=== PATIENT | female | born 1985 | race American Indian/Alaskan Native ===

== ENCOUNTER 2021-08-09 06:58 | Emergency (ER) | payer OTHER ==
[~2021-08-09] VITALS: Ht 160 cm; Wt 122.5 kg
[~2021-08-09 06:58] MED LIST: KEFLEX500 MG PO; MIRENA1 EACH IY; PEPCID20 MG PO; SIMETHICONE80 MG PO; ULTRAM50 MG PO; VITAFOL-OB+DHA1 EACH PO
[2021-08-09] MEDS ORDERED: ONDANSETRON ODT8 MG PO (10:07)
== END 2021-08-09 12:05 | disposition home or self-care (01) ==
LOC: ED 06:58
DX: K29.20 Alcoholic gastritis without bleeding (principal); E87.6 Hypokalemia; Z20.822 Contact with and (suspected) exposure to COVID-19; E11.9 Type 2 diabetes mellitus without complications; Z87.891 Personal history of nicotine dependence
CPT/HCPCS: 36415; 71045; 80053; 81001; 83690; 84703; 85025; 87502; 87880; 96361; 96365; 96366; 96375; 99284-25; A9270; C9113; C9803; J1790; J2405; J2550; J3480; J7030; U0003

== ENCOUNTER 2021-10-18 17:38 | Emergency (ER) | payer OTHER ==
[~2021-10-18] VITALS: Ht 160 cm; Wt 104.6 kg
[~2021-10-18 17:38] MED LIST changes: +ONDANSETRON ODT8 MG PO
[2021-10-18] MEDS ORDERED: OMEPRAZOLE20 MG PO (19:30)
[2021-10-18] MEDS ORDERED: ONDANSETRON ODT8 MG PO (19:30)
== END 2021-10-18 21:07 | disposition home or self-care (01) ==
LOC: ED 17:38
DX: K29.20 Alcoholic gastritis without bleeding (principal); K75.9 Inflammatory liver disease, unspecified; E83.42 Hypomagnesemia; E11.9 Type 2 diabetes mellitus without complications; Z20.822 Contact with and (suspected) exposure to COVID-19; Z87.891 Personal history of nicotine dependence
CPT/HCPCS: 36415; 76705; 80053; 81001; 83690; 83735; 84703; 85025; 87502; 96361; 96374; 96375; 99284-25; A9270; C9113; C9803; J1790; J2405; J3475; J7030; U0003

== ENCOUNTER 2021-11-27 14:21 | Emergency (ER) | payer OTHER ==
[~2021-11-27] VITALS: Ht 160 cm; Wt 100.4 kg
[~2021-11-27 14:21] MED LIST changes: +OMEPRAZOLE20 MG PO
[2021-11-27] MEDS ORDERED: PRILOSEC OTC20 MG PO (16:03)
[2021-11-27] MEDS ORDERED: ONDANSETRON ODT4 MG PO (16:03)
[2021-11-27] MEDS ORDERED: K-TAB ER20 MEQ PO (16:03)
== END 2021-11-27 21:51 | disposition home or self-care (01) ==
LOC: ED 14:21
DX: K70.9 Alcoholic liver disease, unspecified (principal); K29.00 Acute gastritis without bleeding; E87.6 Hypokalemia; E11.9 Type 2 diabetes mellitus without complications; Z87.891 Personal history of nicotine dependence; Z79.899 Other long term (current) drug therapy
CPT/HCPCS: 36415; 80048; 80053; 81001; 83690; 83735; 85025; 96365; 96366; 96375; 96376; 99284-25; A9270; J2405; J2550; J3480; J7060

== ENCOUNTER 2022-07-16 18:55 | Emergency (ER) | payer OTHER ==
[~2022-07-16] VITALS: Ht 160 cm; Wt 100.2 kg
[~2022-07-16 18:55] MED LIST changes: +K-TAB ER20 MEQ PO; +ONDANSETRON ODT4 MG PO; +PRILOSEC OTC20 MG PO
[2022-07-17] MEDS ORDERED: CEPHALEXIN500 MG PO (00:57)
[2022-07-17 01:19] VITALS: BP 115/78
== END 2022-07-17 01:23 | disposition home or self-care (01) ==
LOC: ED 18:55
DX: E86.0 Dehydration (principal); F10.129 Alcohol abuse with intoxication, unspecified; N39.0 Urinary tract infection, site not specified; R74.01 Elevation of levels of liver transaminase levels; E11.9 Type 2 diabetes mellitus without complications; Z87.891 Personal history of nicotine dependence; Z79.899 Other long term (current) drug therapy; Z20.822 Contact with and (suspected) exposure to COVID-19
CPT/HCPCS: 36415; 76705; 80053; 81001; 82553; 83690; 83735; 84703; 85025; 87502; 96365; 96366; 96367; 96375; 96376; 99284-25; C9803; G0480; J0696; J2405; J3411; J3475; J7030; J7121; U0003

== ENCOUNTER 2024-03-03 09:44 | Emergency (ER) | payer OTHER ==
[~2024-03-03] VITALS: Ht 160 cm; Wt 77.3 kg
[~2024-03-03 09:44] MED LIST changes: +CEPHALEXIN500 MG PO
[2024-03-03] MEDS ORDERED: TRIAMCINOLONE A15 G3 TOP (10:05)
[2024-03-03 11:07] LABS: BILIRUBIN, URINE NEGATIVE (negative); BLOOD/HGB, URINE LARGE (Negative); KETONE, URINE NEGATIVE (Negative); LEUK ESTERASE, URINE TRACE (negative); NITRITE, URINE NEGATIVE (negative)
[2024-03-03 11:12] LABS: EPITHELIAL CELLS, URINE SQUAMOUS 4+ /lpf (0-1+)
[2024-03-03 11:13] LABS: BACTERIA, URINE 1+ /hpf (negative); CASTS, URINE NONE SEEN \\lpf; COLLECTION TYPE, URINE CLEAN CATCH; CRYSTALS, URINE NONE SEEN (0-1+)
[2024-03-03 11:14] LABS: REFLEX CULTURE, URINE No (No)
[2024-03-03] MEDS ORDERED: IBUPROFEN 600 MG TAB PO ONE (11:15)
[2024-03-03] MEDS ORDERED: HYDROCODONE/ACETA 5/325 TAB PO ONE (11:15)
[2024-03-03] MEDS ORDERED: HYDROCODON-ACE1 EA10 PO (12:56)
[2024-03-03 13:12] VITALS: BP 106/74
== END 2024-03-03 13:10 | disposition home or self-care (01) ==
LOC: ED 09:44
PROVIDERS: Emergency Medicine
DX: R10.2 Pelvic and perineal pain (principal); S30.0XXA Contusion of lower back and pelvis, initial encounter; R73.03 Prediabetes; Z87.891 Personal history of nicotine dependence; Z79.899 Other long term (current) drug therapy; W19.XXXA Unspecified fall, initial encounter
CPT/HCPCS: 72170; 76830; 76856; 81001; 84703; 99284-25; A9270

== ENCOUNTER 2024-11-25 18:42 | Emergency (ER) | payer OTHER ==
[~2024-11-25] VITALS: Ht 160 cm; Wt 86.8 kg
[~2024-11-25 18:42] MED LIST changes: +HYDROCODON-ACE1 EA10 PO; +TRIAMCINOLONE A15 G3 TOP
[2024-11-25] MEDS ORDERED: DOXYCYCLINE HY100 M3 PO (20:19)
[2024-11-25 20:21] LABS: BASOPHILS 0.8 % (0.1-1.2); EOSINOPHILS 2.2 % (0.7-5.8); LYMPHOCYTES 45.2 % (19.3-51.7); MCH 32.5 PG (25.6-32.2); MCHC 33.2 g/dL (32.2-35.5); MCV 97.8 fL (79.4-94.8); MONOCYTES 7.6 % (4.7-12.5); NEUTROPHILS 44.0 % (34.0-71.1); RBC 4.00 M/uL (3.93-5.22)
[2024-11-25 20:38] LABS: ALT (SGPT) 49.0 U/L (14-59); AST (SGOT) 213.0 U/L (15-37); GLOMERULAR FILTRATION RATE,EST 117.0 mL/min (>60); PROTEIN, TOTAL 6.4 g/dL (6.4-8.2); UREA NITROGEN 4.0 mg/dL (7-18)
[2024-11-25 20:45] LABS: BLOOD/HGB, URINE NEGATIVE (Negative); KETONE, URINE NEGATIVE (Negative); LEUK ESTERASE, URINE NEGATIVE (negative); NITRITE, URINE NEGATIVE (negative)
[2024-11-25] MEDS ORDERED: FAMOTIDINE 20 MG/ 2 ML VIAL IV ONE (21:15)
[2024-11-25 21:22] LABS: INR 1.11 (0.80-1.30); PROTIME 13.6 Sec (11.2-14.2)
[2024-11-25] MEDS ORDERED: IBUPROFEN 800 MG TAB PO ONE (23:15)
[2024-11-25] MEDS ORDERED: IBU800 MG PO (23:29)
[2024-11-25] MEDS ORDERED: THIAMINE HCL 100 MG TAB PO ONE (23:30)
[2024-11-25 23:42] VITALS: BP 112/75
== END 2024-11-25 23:44 | disposition home or self-care (01) ==
LOC: ED 18:42
PROVIDERS: Internal Medicine
DX: S83.91XA Sprain of unspecified site of right knee, initial encounter (principal); S30.11XA Contusion of abdominal wall, initial encounter; K70.9 Alcoholic liver disease, unspecified; F10.90 Alcohol use, unspecified, uncomplicated; D17.5 Benign lipomatous neoplasm of intra-abdominal organs; R73.03 Prediabetes; J45.909 Unspecified asthma, uncomplicated; Z87.891 Personal history of nicotine dependence; Z79.899 Other long term (current) drug therapy; W19.XXXA Unspecified fall, initial encounter
CPT/HCPCS: 36415; 73560; 74177; 80053; 81003; 83690; 84703; 85025; 85610; 85730; 96374; 99284-25; A9270; Q9967

== ENCOUNTER 2025-01-04 12:48 | Emergency (ER) | payer OTHER ==
[~2025-01-04] VITALS: Ht 160 cm; Wt 81.8 kg
[~2025-01-04 12:48] MED LIST changes: +DOXYCYCLINE HY100 M3 PO; +IBU800 MG PO
[2025-01-04] MEDS ORDERED: SODIUM CHLORIDE 0.9% 1,000 ML IV PRN ×2 (14:00→16:30)
[2025-01-04 14:06] LABS: BASOPHILS 0.6 % (0.1-1.2); EOSINOPHILS 0.6 % (0.7-5.8); LYMPHOCYTES 22.0 % (19.3-51.7); MCH 32.8 PG (25.6-32.2); MCHC 33.5 g/dL (32.2-35.5); MCV 97.8 fL (79.4-94.8); MONOCYTES 5.3 % (4.7-12.5); NEUTROPHILS 71.1 % (34.0-71.1); RBC 4.12 M/uL (3.93-5.22)
[2025-01-04] MEDS ORDERED: FOLIC ACID 1 MG/0.2 ML ML IV SCH (14:10)
[2025-01-04] MEDS ORDERED: LORazepam 2 MG/ML VIAL IV/IM PRN (14:15)
[2025-01-04 14:20] LABS: ALT (SGPT) 38.0 U/L (14-59); AST (SGOT) 191.0 U/L (15-37); GLOMERULAR FILTRATION RATE,EST 101.0 mL/min (>60); PROTEIN, TOTAL 6.3 g/dL (6.4-8.2); UREA NITROGEN 5.0 mg/dL (7-18)
[2025-01-04 14:25] LABS: INR 1.27 (0.80-1.30); PROTIME 15.4 Sec (11.2-14.2)
[2025-01-04] MEDS ORDERED: THIAMINE HCL 200 MG/2 ML VIAL IV ONE (16:15)
[2025-01-04 17:09] LABS: BLOOD/HGB, URINE LARGE (Negative); KETONE, URINE NEGATIVE (Negative); LEUK ESTERASE, URINE LARGE (negative); NITRITE, URINE NEGATIVE (negative)
[2025-01-04 17:16] LABS: BACTERIA, URINE RARE /hpf (negative); CASTS, URINE NONE SEEN \\lpf; CRYSTALS, URINE NONE SEEN (0-1+); EPITHELIAL CELLS, URINE SQUAMOUS 1+ /lpf (0-1+)
[2025-01-04 17:17] LABS: REFLEX CULTURE, URINE No (No)
[2025-01-04 17:56] LABS: BLOOD/HGB, URINE NEGATIVE (Negative); KETONE, URINE SMALL (Negative); LEUK ESTERASE, URINE NEGATIVE (negative); NITRITE, URINE NEGATIVE (negative)
[2025-01-04 18:04] LABS: BACTERIA, URINE RARE /hpf (negative); CASTS, URINE NONE SEEN \\lpf; CRYSTALS, URINE NONE SEEN (0-1+); EPITHELIAL CELLS, URINE SQUAMOUS 1+ /lpf (0-1+); REFLEX CULTURE, URINE No (No)
[2025-01-04] MEDS ORDERED: CHLORDIAZEPOXID25 MG PO (19:43)
[2025-01-04] MEDS ORDERED: PROTONIX40 MG PO (19:43)
[2025-01-04 20:07] VITALS: BP 108/67
[2025-01-05] MEDS ORDERED: MULTIVITAMINS THERAPEUTIC 1 EA TAB PO SCH (08:00)
[2025-01-06] MEDS ORDERED: THIAMINE HCL 100 MG TAB PO SCH (08:00)
== END 2025-01-04 20:07 | disposition home or self-care (01) ==
LOC: ED 12:48
PROVIDERS: Emergency Medicine
DX: K29.70 Gastritis, unspecified, without bleeding (principal); F10.90 Alcohol use, unspecified, uncomplicated; K70.30 Alcoholic cirrhosis of liver without ascites; J45.909 Unspecified asthma, uncomplicated; Z87.891 Personal history of nicotine dependence
CPT/HCPCS: 36415; 51701; 76705; 80053; 81001; 83690; 83735; 84703; 85025; 85610; 96361; 96374; 96375; 96376; 99284-25; G0480; J2060; J2405; J3411; J7030

== ENCOUNTER 2025-01-26 11:12 | Emergency (ER) | payer OTHER ==
[~2025-01-26] VITALS: Ht 160 cm; Wt 86.0 kg
[~2025-01-26 11:12] MED LIST changes: +CHLORDIAZEPOXID25 MG PO; +PROTONIX40 MG PO
--- OUTSIDE RECORDS SUMMARY | 2025-01-26 11:19 | XMS ---
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 \F\ <UNAVAIL> PHONE: [phone] Emily has no Care Guidelines for this patient. [place] VISIT COUNT (12 MO.) 4 [facility] TOTAL 4 NOTE: Visits indicate total known visits. ED/C VISIT TRACKING (12 MO.) 01/26/2025 11:13 [facility] [place] TYPE: Emergency COMPLAINT: - ABDOMINAL PAIN 01/04/2025 12:49 [facility] [place] TYPE: Emergency COMPLAINT: - FLU SYMPTOMS DIAGNOSES: - Alcohol use, unspecified, uncomplicated - Alcoholic cirrhosis of liver without ascites - Epigastric pain - Gastritis, unspecified, without bleeding - Personal history of nicotine dependence - Unspecified asthma, uncomplicated 11/25/2024 18:42 [facility] [place] TYPE: Emergency COMPLAINT: - SWELLING DIAGNOSES: - Alcohol use, unspecified, uncomplicated - Alcoholic liver disease, unspecified - Benign lipomatous neoplasm of intra-abdominal organs - Contusion of abdominal wall, initial encounter - Other local company intermodal truck driver (current) drug therapy - Personal history of nicotine dependence - Prediabetes - Sprain of unspecified site of right knee, initial encounter - Unspecified abdominal pain - Unspecified asthma, uncomplicated - Unspecified fall, initial encounter 03/03/2024 09:[address] [facility] [place] TYPE: Emergency COMPLAINT: - VAGINAL BLEEDING DIAGNOSES: - Abnormal uterine and vaginal bleeding, unspecified - Contusion of lower back and pelvis, initial encounter - Other fdc (current) drug therapy - Pelvic and perineal pain - Personal history of nicotine dependence - Prediabetes - Unspecified fall, initial encounter INPATIENT VISIT TRACKING (12 MO.) No inpatient visits to display in this time frame [id number]
[2025-01-26] MEDS ORDERED: FIBER GUMMIES1 EACH PO (11:37)
[2025-01-26] MEDS ORDERED: PRENATAL MULTI1 EAC5 PO (11:37)
[2025-01-26 11:55] LABS: BLOOD/HGB, URINE MODERATE (Negative); KETONE, URINE NEGATIVE (Negative); LEUK ESTERASE, URINE NEGATIVE (negative); NITRITE, URINE NEGATIVE (negative)
[2025-01-26 11:57] LABS: BASOPHILS 0.6 % (0.1-1.2); EOSINOPHILS 2.2 % (0.7-5.8); LYMPHOCYTES 16.9 % (19.3-51.7); MCH 32.3 PG (25.6-32.2); MCHC 32.8 g/dL (32.2-35.5); MCV 98.4 fL (79.4-94.8); MONOCYTES 4.3 % (4.7-12.5); NEUTROPHILS 75.8 % (34.0-71.1); RBC 3.78 M/uL (3.93-5.22)
[2025-01-26 12:08] LABS: ALT (SGPT) 24.0 U/L (14-59); AST (SGOT) 91.0 U/L (15-37); GLOMERULAR FILTRATION RATE,EST 117.0 mL/min (>60); PROTEIN, TOTAL 6.5 g/dL (6.4-8.2); UREA NITROGEN 3.0 mg/dL (7-18)
[2025-01-26 12:19] LABS: BACTERIA, URINE NONE SEEN /hpf (negative); CASTS, URINE NONE SEEN \\lpf; CRYSTALS, URINE NONE SEEN (0-1+); EPITHELIAL CELLS, URINE SQUAMOUS 2+ /lpf (0-1+); REFLEX CULTURE, URINE No (No)
[2025-01-26] MEDS ORDERED: HYDROmorphone HCL 1 MG/ML SYR IV ONE (13:30)
[2025-01-26] MEDS ORDERED: ONDANSETRON HCL4 MG PO (14:18)
[2025-01-26] MEDS ORDERED: HYDROCODON-ACE1 EAC8 PO (14:18)
[2025-01-26 14:41] VITALS: BP 108/60
[2025-01-26] MEDS ORDERED: HYDROCODONE/APAP 10/325 1 TAB PO ONE (14:45)
== END 2025-01-26 14:43 | disposition home or self-care (01) ==
LOC: ED 11:12
PROVIDERS: Emergency Medicine
DX: K85.90 Acute pancreatitis without necrosis or infection, unspecified (principal); J45.909 Unspecified asthma, uncomplicated; Z87.891 Personal history of nicotine dependence; Z79.899 Other long term (current) drug therapy
CPT/HCPCS: 36415; 80053; 81001; 83690; 83735; 84703; 85025; 96374; 99284-25; A9270; J1171

== ENCOUNTER 2025-02-04 05:18 | Emergency (ER) | payer OTHER ==
[~2025-02-04] VITALS: Ht 160 cm; Wt 84.3 kg
--- OUTSIDE RECORDS SUMMARY | ~2025-02-04 | XMS | Continuity of Care Document ---
Demographics + + + | Address | [address] | | | [place] [address] | + + + | Preferred Language | Unknown | + + + | Marital Status | | + + + | Gnosticism Affiliation | Unknown | + + + | Race | or | + + + | Ethnic Group | Not or | + + + Author + + + | Author | [facility] | + + + | Organization | [facility] | + + + | Address | [address] | | | [place] [address] | + + + | Phone | | + + + Care Team Providers + + + + | Care Fraud Examiner Name | Role | Phone | + + + + Unavailable | Unavailable | + + + + Unavailable | Unavailable | + + + + Allergies and Intolerances + + + + + + | date | description | facility | reaction | severity | + + + + + + | 2025-01-26 | UNK | [facility] - | (no reaction) | Mild | | 00:00 | [facility] | | | + + + + + + Encounters No information. Functional Status No information. Immunizations No information. Medications + + + + | date | description | facility | + + + + | 2025-01-04 00:00 | ONDANSETRON | [facility] | | | | [facility] | + + + + | (no date) | TRIAMCINOLONE ACETONIDE | [facility] | | | | [facility] | + + + + | (no date) | INULIN/CHROMIUM PICOLINATE | [facility] | | | | [facility] | + + + + | (no date) | DOXYCYCLINE HYCLATE | [facility] | | | | [facility] | + + + + | 2025-01-26 00:00 | ONDANSETRON HCL | [facility] | | | | [facility] | + + + + | 2024-11-25 00:00 | Ibuprofen | [facility] | | | | [facility] | + + + + | 2025-01-04 00:00 | PANTOPRAZOLE SODIUM | [facility] | | | | [facility] | + + + + | (no date) | LEVONORGESTREL | [facility] | | | | [facility] | + + + + | 2025-01-26 00:00 | HYDROCODONE | [facility] | | | BIT/ACETAMINOPHEN | [facility] | + + + + | 2025-01-04 00:00 | CHLORDIAZEPOXIDE HCL | [facility] | | | | [facility] | + + + + Problems + + + + | date | description | facility | + + + + | 2024-11-25 00:00 | Alcohol use disorder | [facility] | | | | [facility] | + + + + | 2024-11-25 00:00 | Alcoholic liver disease | [facility] | | | | [facility] | + + + + | 2024-11-25 00:00 | Sprain of knee | [facility] | | | | [facility] | + + + + | 2025-01-04 00:00 | Gastritis | [facility] | | | | [facility] | + + + + | 2025-01-04 00:00 | Cirrhosis with alcoholism | [facility] | | | | [facility] | + + + + | 2025-01-26 00:00 | Pancreatitis | [facility] | | | | [facility] | + + + + Procedures No information. Results/Labs +--------+--------+ +---------+--------+---------+ | test | date | facility | value | unit | notes | +--------+--------+ +---------+--------+---------+ + + | Result panel 1 | + + + + + +--------+ + + | Prothrombin | 2025-01-04 | | 15.4 | (missing) | (missing) | | time | 13:35:08 | [facility] | | | | + + + +--------+ + + + + | Result panel 2 | + + + + + +--------+ + + | INR PPP | 2025-01-04 | | 1.27 | (missing) | (missing) | | | 13:35:08 | [facility] | [facility] | | | | + + + +--------+ + + + + | Result panel 3 | + + + + + +------+ + + | Ethanol | 2025-01-04 | | <3 | (missing) | (missing) | | SerPl-sCnc | 13:35:08 | [facility] | | | | | | [facility] | | | | + + + +------+ + + + + | Result panel 4 | + + + + + +--------+ + + | MCHC RBC | 2025-01-26 | | 32.8 | (missing) | (missing) | | Auto-EntMCnc | 11:30:08 | [facility] | | | | [facility] | | | | + + + +--------+ + + + + | Result panel 5 | + + + + + +-------+ + + | Platelet # | 2025-01-26 | | 174 | (missing) | (missing) | | Bld Auto | 11:30:08 | [facility] | | | | [facility] | | | | + + + +-------+ + + + + | Result panel 6 | + + + + + +--------+ + + | Neutrophils | 2025-01-26 | | 75.8 | (missing) | (missing) | | NFr Bld | 11:30:08 | [facility] | | | | | Auto | | [facility] | | | | + + + +--------+ + + + + | Result panel 7 | + + + + + +--------+ + + | Lymphocytes | 2025-01-26 | | 16.9 | (missing) | (missing) | | NFr Bld | 11:30:08 | [facility] | | | | | Auto | | [facility] | | | | + + + +--------+ + + + + | Result panel 8 | + + + + + +-------+ + + | Monocytes | 2025-01-26 | | 4.3 | (missing) | (missing) | | NFr Bld Auto | 11:30:08 | [facility] | | | | [facility] | | | | + + + +-------+ + + + + | Result panel 9 | + + + + + +-------+ + + | Eosinophil | 2025-01-26 | | 2.2 | (missing) | (missing) | | NFr Bld Auto | 11:30:08 | [facility] | | | | [facility] | | | | + + + +-------+ + + + + | Result panel 10 | + + + + + +-------+ + + | Basophils | 2025-01-26 | | 0.6 | (missing) | (missing) | | NFr Bld Auto | 11:30:08 | [facility] | | | [facility] | | | | + + + +-------+ + + + + | Result panel 11 | + + + + + +------+---------+ + | Glucose | 2025-01-26 | | 97 | mg/dL | (missing) | | SerPl-mCnc | 11:30:08 | [facility] | | | | | | [facility] | | | | + + + +------+---------+ + + + | Result panel 12 | + + + + + +-----+---------+ + | BUN | 2025-01-26 | | 3 | mg/dL | (missing) | | [facility]-John[facility] | 11:30:08 | [facility] | | | | | | [facility] | | | | + + + +-----+---------+ + + + | Result panel 13 | + + + + + +--------+---------+ + | Creat | 2025-01-26 | | 0.57 | mg/dL | (missing) | | SerPl-mCnc | 11:30:08 | [facility] | | | [facility] | | | | + + + +--------+---------+ + + + | Result panel 14 | + + + + + +--------+ + + | WBC # Bld | 2025-01-26 | | 5.37 | (missing) | (missing) | | Auto | 11:30:08 | [facility] | | | [facility] | | | | + + + +--------+ + + + + | Result panel 15 | + + + + + +-------+ + + | eGFRcr | 2025-01-26 | | 117 | (missing) | (missing) | | SerPlBld | 11:30:08 | [facility] | | | | | CKD-EPI 2020 | [facility] | | | | + + + +-------+ + + + + | Result panel 16 | + + + + + +--------+ + + | BUN/Creat | 2025-01-26 | | 5.26 | (missing) | (missing) | | SerPl | 11:30:08 | [facility] | | | | | | [facility] | | | | + + + +--------+ + + + + | Result panel 17 | + + + + + +-------+ + + | Sodium | 2025-01-26 | | 135 | (missing) | (missing) | | SerPl-sCnc | 11:30:08 | [facility] | | | | | | [facility] | | | | + + + +-------+ + + + + | Result panel 18 | + + + + + +-------+ + + | Potassium | 2025-01-26 | | 3.3 | (missing) | (missing) | | SerPl-sCnc | 11:30:08 | [facility] | | | | | | [facility] | | | | + + + +-------+ + + + + | Result panel 19 | + + + + + +-------+ + + | Chloride | 2025-01-26 | | 102 | (missing) | (missing) | | SerPl-sCnc | 11:30:08 | [facility] | | | | | [facility] | | | | + + + +-------+ + + + + | Result panel 20 | + + + + + +------+ + + | CO2 | 2025-01-26 | | 26 | (missing) | (missing) | | SerPl-sCnc | 11:30:08 | [facility] | | | | | | [facility] | | | | + + + +------+ + + + + | Result panel 21 | + + + + + +--------+ + + | Anion Gap | 2025-01-26 | | 10.3 | (missing) | (missing) | | SerPl | 11:30:08 | [facility] | | | | | Calculated.4 | | [facility]nc | | [facility] | | | | + + + +--------+ + + + + | Result panel 22 | + + + + + +-------+---------+ + | Calcium | 2025-01-26 | | 8.1 | mg/dL | (missing) | | SerPl-mCnc | 11:30:08 | [facility] | | | | | | [facility] | | | | + + + +-------+---------+ + + + | Result panel 23 | + + + + + +-------+---------+ + | Magnesium | 2025-01-26 | | 1.6 | mg/dL | (missing) | | [facility] | 11:30:08 | [facility] | | | | | | [facility] | | | | + + + +-------+---------+ + + + | Result panel 24 | + + + + + +-------+ + + | Prot | 2025-01-26 | | 6.5 | (missing) | (missing) | | SerPl-mCnc | 11:30:08 | [facility] | | | | | [facility] | | | | + + + +-------+ + + + + | Result panel 25 | + + + + + +--------+ + + | RBC # Bld | 2025-01-26 | | 3.78 | (missing) | (missing) | | Auto | 11:30:08 | [facility] | | | | | [facility] | | | | + + + +--------+ + + + + | Result panel 26 | + + + + + +-------+ + + | Albumin | 2025-01-26 | | 2.6 | (missing) | (missing) | | SerPl-mCnc | 11:30:08 | [facility] | | | | | | | - | | | | | | | [facility] | | | | + + + +-------+ + + + + | Result panel 27 | + + + + + +-------+ + + | Globulin | 2025-01-26 | | 3.9 | (missing) | (missing) | | Ser-mCnc | 11:30:08 | [facility] | | | | | | [facility] | | | | + + + +-------+ + + + + | Result panel 28 | + + + + + +--------+ + + | | 2025-01-26 | | 0.67 | (missing) | (missing) | | Albumin/Glob | 11:30:08 | [facility] | | | | | SerPl | [facility] | | | | + + + +--------+ + + + + | Result panel 29 | + + + + + +-------+---------+ + | Bilirub | 2025-01-26 | | 1.9 | mg/dL | (missing) | | SerPl-mCnc | 11:30:08 | [facility] | | | | | [facility] | | | | + + + +-------+---------+ + + + | Result panel 30 | + + + + + +------+ + + | AST | 2025-01-26 | | 91 | (missing) | (missing) | | SerPl-cCn | 11:30:08 | [facility] | | | | | | [facility] | | | | + + + +------+ + + + + | Result panel 31 | + + + + + +------+ + + | ALT | 2025-01-26 | | 24 | (missing) | (missing) | | SerPl-cCnc | 11:30:08 | [facility] | | | | | [facility] | | | | + + + +------+ + + + + | Result panel 32 | + + + + + +-------+ + + | ALP | 2025-01-26 | | 178 | (missing) | (missing) | | [facility] | 11:30:08 | [facility] | | | | [facility] | | | | + + + +-------+ + + + + | Result panel 33 | + + + + + +------+ + + | Lipase | 2025-01-26 | | 90 | (missing) | (missing) | | SerPl-cCnc | 11:30:08 | [facility] | | | | | [facility] | | | | + + + +------+ + + + + | Result panel 34 | + + + + + + + + + | HCG SerPl | 2025-01-26 | | NEGATIVE | (missing) | (missing) | | Ql | 11:30:08 | [facility] | [facility] | | | | + + + + + + + + + | Result panel 35 | + + + + + +--------+ + + | Hgb | 2025-01-26 | | 12.2 | (missing) | (missing) | | Bld-mCnc | 11:30:08 | [facility] | | | | | [facility] | | | | + + + +--------+ + + + + | Result panel 36 | + + + + + +--------+ + + | Hct VFr.DF | 2025-01-26 | | 37.2 | (missing) | (missing) | | Bld Auto | 11:30:08 | [facility] | | | [facility] | | | | + + + +--------+ + + + + | Result panel 37 | + + + + + +--------+ + + | RBC Auto | 2025-01-26 | | 98.4 | (missing) | (missing) | | | 11:30:08 | [facility] | | | | + + + +--------+ + + + + | Result panel 38 | + + + + + +--------+ + + | MCH RBC Qn | 2025-01-26 | | 32.3 | (missing) | (missing) | | Auto | 11:30:08 | [facility] | | | | [facility] | | | | + + + +--------+ + + + + | Result panel 39 | + + + + + + + + + | Color Ur | 2025-01-26 | | YELLOW | (missing) | (missing) | | Auto | 11:50:08 | [facility] | | | [facility] | | | | + + + + + + + + + | Result panel 40 | + + + + + +---------+ + + | Character | 2025-01-26 | | CLEAR | (missing) | (missing) | | Ur | 11:50:08 | [facility] | | | | | [facility] | | | | + + + +---------+ + + + + | Result panel 41 | + + + + + + + + + | Glucose Ur | 2025-01-26 | | NEGATIVE | (missing) | (missing) | | Ql Strip | 11:50:08 | [facility] | | | | [facility] | | | | + + + + + + + + + | Result panel 42 | + + + + + + + + + | Bilirub Ur | 2025-01-26 | | NEGATIVE | (missing) | (missing) | | Ql Strip | 11:50:08 | [facility] | | | | | [facility] | | | | + + + + + + + + + | Result panel 43 | + + + + + + + + + | Ketones Ur | 2025-01-26 | | NEGATIVE | (missing) | (missing) | | Ql Strip | 11:50:08 | [facility] | | | | | [facility] | | | | + + + + + + + + + | Result panel 44 | + + + + + +---------+ + + | Sp Gr Ur | 2025-01-26 | | 1.010 | (missing) | (missing) | | Strip | 11:50:08 | [facility] | | | | | [facility] | | | | + + + +---------+ + + + + | Result panel 45 | + + + + + + + + + | Hgb Ur Ql | 2025-01-26 | | MODERATE | (missing) | (missing) | | Strip | 11:50:08 | [facility] | | | | | | [facility] | | | | + + + + + + + + + | Result panel 46 | + + + + + +-------+ + + | pH Ur Strip | 2025-01-26 | | 7.5 | (missing) | (missing) | | | 11:50:08 | [facility] | | | | | [facility] | | | | + + + +-------+ + + + + | Result panel 47 | + + + + + + + + + | Prot Ur | 2025-01-26 | | NEGATIVE | (missing) | (missing) | | Strip-mCnc | 11:50:08 | [facility] | | | | | [facility] | | | | + + + + + + + + + | Result panel 48 | + + + + + + + + + | | 2025-01-26 | | NORMAL | (missing) | (missing) | | Urobilinogen | 11:50:08 | [facility] | | | | | Ur | [facility]-m[facility]nc | | [facility] | | | | + + + + + + + + + | Result panel 49 | + + + + + + + + + | Nitrite Ur | 2025-01-26 | | NEGATIVE | (missing) | (missing) | | Ql Strip | 11:50:08 | [facility] | | | | | | [facility] | | | | + + + + + + + + + | Result panel 50 | + + + + + + + + + | Leukocyte | 2025-01-26 | | NEGATIVE | (missing) | (missing) | | esterase Ur | 11:50:08 | [facility] | | | | | Ql Strip | [facility] | | | | + + + + + + + + + | Result panel 51 | + + + + + +-------+ + + | RBC #/area | 2025-01-26 | | 0-1 | (missing) | (missing) | | UrnS HPF | 11:50:08 | [facility] | | | | | | [facility] | | | | + + + +-------+ + + + + | Result panel 52 | + + + + + +-------+ + + | WBC #/area | 2025-01-26 | | 0-1 | (missing) | (missing) | | UrnS HPF | 11:50:08 | [facility] | | | | | | [facility] | | | | + + + +-------+ + + + + | Result panel 53 | + + + + + + + + + | Epi Cells | 2025-01-26 | | SQUAMOUS 2+ | (missing) | (missing) | | #/area UrnS | 11:50:08 | [facility] | | | | | HPF | [facility] | | | | + + + + + + + + + | Result panel 54 | + + + + + + + + + | Crystals | 2025-01-26 | | NONE SEEN | (missing) | (missing) | | UrnS Micro | 11:50:08 | [facility] | | | | | | [facility] | | | | + + + + + + + + + | Result panel 55 | + + + + + + + + + | Bacteria | 2025-01-26 | | NONE SEEN | (missing) | (missing) | | #/area UrnS | 11:50:08 | [facility] | | | | | HPF | | - | | | | | | | [facility] | | | | + + + + + + + + + | Result panel 56 | + + + + + + + + + | Casts | 2025-01-26 | | NONE SEEN | (missing) | (missing) | | #/area UrnS | 11:50:08 | [facility] | | | | | LPF | [facility] | | | | + + + + + + + + + | Result panel 57 | + + + + + +------+ + + | Bacteria Ur | 2025-01-26 | | No | (missing) | (missing) | | Cult | 11:50:08 | [facility] | | | | | | [facility] | | | | + + + +------+ + + + + | Result panel 58 | + + + + + + + + + | Urn Spec | 2025-01-26 | | CLEAN CATCH | (missing) | (missing) | | Collect Meth | 11:50:08 | [facility] | | | | | Ur | [facility] | | | | + + + + + + + Social History +--------+ + + | date | description | facility | +--------+ + + Vital Signs + + + +---------+ | date | measurement | value | units | + + + +---------+ | 2025-01-04 00:00 | BMI | 31.9 | kg/m2 | + + + +---------+ | 2025-01-04 00:00 | BP_diastolic | 67 | mmHg | + + + +---------+ | 2025-01-04 00:00 | BP_systolic | 108 | mmHg | + + + +---------+ | 2025-01-04 00:00 | heart_rate | 73 | /min | + + + +---------+ | 2025-01-04 00:00 | height_metric | 160.02 | cm | + + + +---------+ | 2025-01-04 00:00 | height_standard | 63 | in | + + + +---------+ | 2025-01-04 00:00 | o2_saturation | 98 | % | + + + +---------+ | 2025-01-04 00:00 | respiration_rate | 17 | /min | + + + +---------+ | 2025-01-04 00:00 | | 98.6 | F | | | temperature_standar | | | | | d | | | + + + +---------+ | 2025-01-04 00:00 | weight_metric | 81.8 | kg | + + + +---------+ | 2025-01-04 00:00 | weight_standard | 180.337 | lb | + + + +---------+ | 2025-01-26 00:00 | BMI | 33.6 | kg/m2 | + + + +---------+ | 2025-01-26 00:00 | BP_diastolic | 60 | mmHg | + + + +---------+ | 2025-01-26 00:00 | BP_systolic | 108 | mmHg | + + + +---------+ | 2025-01-26 00:00 | heart_rate | 75 | /min | + + + +---------+ | 2025-01-26 00:00 | height_metric | 160.02 | cm | + + + +---------+ | 2025-01-26 00:00 | height_standard | 63 | in | + + + +---------+ | 2025-01-26 00:00 | o2_saturation | 98 | % | + + + +---------+ | 2025-01-26 00:00 | respiration_rate | 14 | /min | + + + +---------+ | 2025-01-26 00:00 | | 98.5 | F | | | temperature_standar | | | | | d | | | + + + +---------+ | 2025-01-26 00:00 | weight_metric | 86.001 | kg | + + + +---------+ | 2025-01-26 00:00 | weight_standard | 189.600 | lb | + + + +---------+"
[~2025-02-04 05:18] MED LIST changes: +FIBER GUMMIES1 EACH PO; +HYDROCODON-ACE1 EAC8 PO; +ONDANSETRON HCL4 MG PO; +PRENATAL MULTI1 EAC5 PO
--- OUTSIDE RECORDS SUMMARY | 2025-02-04 05:25 | XMS ---
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 \F\ <UNAVAIL> PHONE: [phone] Emily has no Care Guidelines for this patient. [place] VISIT COUNT (12 MO.) 5 [facility] TOTAL 5 NOTE: Visits indicate total known visits. ED/C VISIT TRACKING (12 MO.) 02/04/2025 05:19 [facility] [place] TYPE: Emergency COMPLAINT: - ABD PAIN 01/26/2025 11:13 [facility] [place] TYPE: Emergency COMPLAINT: - ABDOMINAL PAIN DIAGNOSES: - Acute pancreatitis without necrosis or infection, unspecified - Lower abdominal pain, unspecified - Other penitentiary (current) drug therapy - Personal history of nicotine dependence - Unspecified asthma, uncomplicated 01/04/2025 12:49 [facility] [place] TYPE: Emergency [...] of abdominal wall, initial encounter - Other termite helper (current) drug therapy - Personal history of nicotine dependence - Prediabetes - Sprain of unspecified site of right knee, initial encounter - Unspecified abdominal pain - Unspecified asthma, uncomplicated - Unspecified fall, initial encounter 03/03/2024 09:44 [facility] [place] TYPE: Emergency COMPLAINT: - VAGINAL BLEEDING DIAGNOSES: - Abnormal uterine and vaginal bleeding, unspecified - Contusion of lower back and pelvis, initial encounter - Other penitentiary (current) drug therapy - Pelvic and perineal pain - Personal history of nicotine dependence - Prediabetes - Unspecified fall, initial encounter INPATIENT VISIT TRACKING (12 MO.) No inpatient visits to display in this time frame [id number]
[2025-02-04] MEDS ORDERED: FAMOTIDINE 20 MG/ 2 ML VIAL IV ONE ×2 (06:00→06:30)
[2025-02-04] MEDS ORDERED: THIAMINE HCL 200 MG/2 ML VIAL IV ONE (06:00)
[2025-02-04 06:02] LABS: BASOPHILS 0.8 % (0.1-1.2); EOSINOPHILS 2.9 % (0.7-5.8); LYMPHOCYTES 45.0 % (19.3-51.7); MCH 31.8 PG (25.6-32.2); MCHC 32.8 g/dL (32.2-35.5); MCV 97.0 fL (79.4-94.8); MONOCYTES 4.6 % (4.7-12.5); NEUTROPHILS 46.4 % (34.0-71.1); RBC 4.02 M/uL (3.93-5.22)
[2025-02-04] MEDS ORDERED: LACTATED RINGER'S 1,000 ML IV ONE ×2 (06:30→07:45)
[2025-02-04] MEDS ORDERED: KETOROLAC TROMETHAMINE 30 MG/ML VIAL IV ONE (06:30)
[2025-02-04 06:39] LABS: ALT (SGPT) 19.0 U/L (14-59); AST (SGOT) 75.0 U/L (15-37); GLOMERULAR FILTRATION RATE,EST 118.0 mL/min (>60); PROTEIN, TOTAL 6.5 g/dL (6.4-8.2); UREA NITROGEN 2.0 mg/dL (7-18)
[2025-02-04 06:40] LABS: ALCOHOL, MEDICAL 310.0 mg/dL (<3)
[2025-02-04] MEDS ORDERED: DOXYCYCLINE HYCLATE 100 MG CAP PO ONE (07:30)
[2025-02-04 07:33] LABS: BLOOD/HGB, URINE NEGATIVE (Negative); KETONE, URINE NEGATIVE (Negative); LEUK ESTERASE, URINE SMALL (negative); NITRITE, URINE NEGATIVE (negative)
[2025-02-04] MEDS ORDERED: DOXYCYCLINE HY100 MG PO (07:35)
[2025-02-04] MEDS ORDERED: PRILOSEC OTC20 MG PO (07:35)
[2025-02-04 07:40] LABS: EPITHELIAL CELLS, URINE SQUAMOUS 2+ /lpf (0-1+)
[2025-02-04 07:41] LABS: BACTERIA, URINE 1+ /hpf (negative); CASTS, URINE NONE SEEN \\lpf; CRYSTALS, URINE NONE SEEN (0-1+); REFLEX CULTURE, URINE No (No)
[2025-02-04 07:42] LABS: LACTIC ACID, BLOOD 2.6 mmol/L (0.4-2.0)
[2025-02-04] MEDS ORDERED: LIDOCAINE & ANTACID 35 ML BTL PO ONE (07:45)
[2025-02-04 08:54] LABS: AMPHETAMINES, URINE NEGATIVE (NEGATIVE); BARBITURATES, URINE NEGATIVE (NEGATIVE); BENZODIAZEPINE, URINE NEGATIVE (NEGATIVE); CANNABINOID, URINE POSITIVE (NEGATIVE); COCAINE, URINE NEGATIVE (NEGATIVE); ECSTASY, URINE NEGATIVE (NEGATIVE); FENTANYL, URINE NEGATIVE (NEGATIVE); METHADONE, URINE NEGATIVE (NEGATIVE); OPIATES, URINE NEGATIVE (NEGATIVE); OXYCODONE, URINE NEGATIVE (NEGATIVE); PHENCYCLIDINE, URINE NEGATIVE (NEGATIVE)
[2025-02-04] MEDS ORDERED: SODIUM CHLORIDE 0.9% 1,000 ML IV SCH (10:45)
[2025-02-04 11:41] LABS: LACTIC ACID, BLOOD 2.5 mmol/L (0.4-2.0)
[2025-02-04] MEDS ORDERED: CHLORDIAZEPOXID25 MG PO (13:13)
== END 2025-02-04 13:29 | disposition home or self-care (01) ==
LOC: ED 05:18
PROVIDERS: Emergency Medicine; Internal Medicine
DX: L02.512 Cutaneous abscess of left hand (principal); K29.20 Alcoholic gastritis without bleeding; J45.909 Unspecified asthma, uncomplicated; E11.9 Type 2 diabetes mellitus without complications; Z79.899 Other long term (current) drug therapy; Z87.891 Personal history of nicotine dependence
CPT/HCPCS: 26010; 36415; 74177; 76705; 80053; 80307; 81001; 83605; 83690; 84703; 85025; 87040; 87070; 87075; 87186; 87205; 96361; 96374; 96375; 96376; 99284-25; G0480; J1790; J1885; J2405; J3411; J7121; Q9967